=== PATIENT | female | born 2005 | race Hispanic/Latino ===

== ENCOUNTER 2024-02-07 07:31 | Emergency (ER) | payer SELFPAY ==
[2024-02-07] MEDS: Ketorolac 30 MG/ML SDV IVPUSH ONE (08:06)
[2024-02-07] MEDS: Ondansetron 4 MG/2 ML SDV IVPUSH ONE (08:06)
[2024-02-07] MEDS: Sodium Chloride 0.9% 1,000 ML IV ONE (08:07)
[2024-02-07] MEDS: Famotidine 20 MG/2 ML SDV IVPUSH ONE (08:07)
[2024-02-07 08:22] LABS: BASOPHILS ABSOLUTE AUTO 0.03 K/uL (0.00-0.20); BASOPHILS PERCENT AUTO 0.4 % (0.0-1.0); EOSINOPHILS ABSOLUTE AUTO 0.13 K/uL (0.00-0.45); EOSINOPHILS PERCENT AUTO 1.6 % (0.0-6.0); HEMATOCRIT 35.9 % (37.0-47.0); IMMATURE GRAN ABSOLUTE AUTO 0.02 K/uL (0.00-0.05); IMMATURE GRAN PERCENT AUTO 0.3 % (0.0-0.4); LYMPHOCYTES ABSOLUTE AUTO 3.07 K/uL (1.00-4.80); LYMPHOCYTES PERCENT AUTO 38.6 % (24.0-44.0); MEAN CORPUSCULAR HEMOGLOBIN 22.6 pg (28.0-32.0); MEAN CORPUSCULAR HGB CONC 30.6 g/dL (32.0-36.0); MEAN CORPUSCULAR VOLUME 73.9 fL (83.0-99.0); MEAN PLATELET VOLUME 10.4 fL (9.4-12.3); MONOCYTES ABSOLUTE AUTO 0.46 K/uL (0.00-0.80); MONOCYTES PERCENT AUTO 5.8 % (0.0-8.0); NEUTROPHILS ABSOLUTE AUTO 4.24 K/uL (1.80-7.70); NEUTROPHILS PERCENT AUTO 53.3 % (41.0-71.0); PLATELET COUNT,PLT 283 K/uL (150-400); RED BLOOD CELL COUNT 4.86 M/uL (4.10-5.30); WHITE BLOOD CELL COUNT,WBC 7.95 K/uL (3.9-11.3)
[2024-02-07 08:50] LABS: A/G RATIO 0.8 (0.9-1.6); ALBUMIN 3.4 g/dL (3.4-5.0); BILIRUBIN TOTAL 0.4 mg/dL (0.2-1.0); CALCIUM 8.6 mg/dL (8.5-10.1); CARBON DIOXIDE,CO2 22.3 mmol/L (21.0-32.0); CREATININE 0.9 mg/dL (0.6-1.0); EST CRCL DRUG DOSING (CG) 86.1 mL/min; POTASSIUM,K 4.2 mmol/L (3.5-5.1); PROTEIN TOTAL,TP 7.5 g/dL (6.4-8.2)
== END 2024-02-07 09:38 | disposition home or self-care (01) ==
LOC: MW.ED 07:31
DX: K82.8 Other specified diseases of gallbladder (principal); Z79.899 Other long term (current) drug therapy; Z75.8 Other problems related to medical facilities and other health care; Z88.0 Allergy status to penicillin
CPT/HCPCS: 36415; 76705; 80053; 83690; 83735; 84703; 85025; 96361; 96374; 96375; 99284; J1885; J2405; J3490; J7030